=== PATIENT | female | born 1965 | race Caucasian/White ===

== ENCOUNTER 2017-09-11 10:30 | Outpatient (CLI) | payer OTHER | END 2017-09-11 10:31 | disposition home or self-care (01) | LOC: BICULT 10:30 | PROVIDERS: ATTEND Family Medicine | DX: R10.11 Right upper quadrant pain (principal) | CPT/HCPCS: 76700 ==

== ENCOUNTER 2018-08-04 08:34 | Emergency (ER) | payer OTHER ==
[2018-08-04] MEDS ORDERED: Metoclopramide HCl 10 MG/2 ML VIAL ONE (09:14)
== END 2018-08-04 10:30 | disposition home or self-care (01) ==
LOC: ERS 08:34
DX: F07.81 Postconcussional syndrome (principal); I10 Essential (primary) hypertension; G43.909 Migraine, unspecified, not intractable, without status migrainosus; F41.9 Anxiety disorder, unspecified; Z79.899 Other long term (current) drug therapy
CPT/HCPCS: 96365; J2765

== ENCOUNTER 2018-08-12 14:27 | Outpatient (CLI) | payer OTHER ==
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
== END 2018-08-12 14:28 | disposition home or self-care (01) ==
LOC: SCSMRI 14:27
PROVIDERS: ATTEND Family Medicine
DX: S09.90XS Unspecified injury of head, sequela (principal); R51 Headache
CPT/HCPCS: 70551